=== PATIENT | male | born 1995 | race Caucasian/White ===

== ENCOUNTER 2019-06-04 08:51 | Inpatient (IN) | payer OTHER ==
[2019-06-04] VITALS (34 sets, daily range): BP systolic 70–122; BP diastolic 36–84
[~2019-06-04] VITALS: Ht 177.8 cm; Wt 88.9 kg
--- NOTE | 2019-06-04 09:13 | NUR ---
Patient transferred to bed 2 via wheelchair by tech. RN evaluating patient at bedside.
--- NOTE | 2019-06-04 09:15 | NUR ---
Dr. Armendariz is evaluating the patient at bedside.
[2019-06-04] MEDS ORDERED: NACL 0.9% 1,000 ML IV ONE ×3 (09:25→11:05)
[2019-06-04] MEDS ORDERED: KETOROLAC 30 MG/ML VIAL IVP ONE (09:25)
[2019-06-04] MEDS ORDERED: ONDANSETRON 4 MG/2 ML VIAL IVP ONE ×2 (09:25→11:05)
[2019-06-04] MEDS ORDERED: DEXAMETHASONE 10 MG/ML VIAL IVP ONE (09:30)
[2019-06-04] MEDS ORDERED: VANCOMYCIN 1,000 MG in DEXTROSE 5% 250 ML IV ONE (09:30)
[2019-06-04] MEDS ORDERED: cefTRIAXone 2,000 MG in DEXTROSE 5% 100 ML IV ONE (09:30)
[2019-06-04] MEDS ORDERED: LIDOCAINE MPF 1% 10 MG/ML VIAL INJ ONE (09:50)
[2019-06-04] MEDS ORDERED: LIDOCAINE MPF 1% 5 ML ONE (09:50)
[2019-06-04] MEDS ORDERED: cefTRIAXone 2,000 MG VIAL ONE (09:55)
[2019-06-04] MEDS ORDERED: VANCOMYCIN 1,000 MG VIAL ONE (09:56)
[2019-06-04 10:11] LABS: HEMATOCRIT 50.9 % (36-52); HEMOGLOBIN 16.8 g/dL (12.0-18.0); MEAN CORPUSCULAR HEMOGLOBIN 31 pg (27-31); MEAN CORPUSCULAR HGB CONC 33 g/dL (33-37); MEAN CORPUSCULAR VOLUME 92.6 fL (80-94); PLATELET COUNT (AUTO) 150 K/uL (140-450); RED BLOOD CELL COUNT(AUTO) 5.49 MIL/uL (4.20-6.10); RED CELL DISTRIBUTION WIDTH 13.1 % (11.6-13.7); WHITE BLOOD COUNT (AUTO) 40.7 K/uL (4.8-10.8)
[2019-06-04 10:12] LABS: BASOPHILS # (AUTO) 0.1 K/uL (0.00-0.22); BASOPHILS % (AUTO) 0.1 % (0.0-2.0); LYMPHOCYTES # (AUTO) 0.8 K/uL (2.0-11.5); MONOCYTES # (AUTO) 2.1 K/uL (0.8-1.0); MONOCYTES % (AUTO) 5.2 % (1.7-9.3); NEUTROPHILS # (AUTO) 37.7 K/uL (1.8-7.7); NEUTROPHILS % (AUTO) 92.7 % (42.2-75.2)
[2019-06-04] MEDS ORDERED: NOREPINEPHRINE 4 MG in DEXTROSE 5% 250 ML IV ONE (10:15)
[2019-06-04 10:17] LABS: LYMPHOCYTES % (MANUAL) 2 % (20-46); METAMYELOCYTES % 5 % (0-0); MONOCYTES % (MANUAL) 8 % (5-12); MYELOCYTES % 2 % (0-0)
--- NOTE | 2019-06-04 10:17 | NUR ---
Dr. Armendariz and RN at bedside for lumbar puncture.
[2019-06-04] MEDS: NACL 0.9% 1,000 ML IV SCH ×2 (10:20→10:29)
--- NOTE | 2019-06-04 10:24 | NUR ---
time out per dr rojas
--- NOTE | 2019-06-04 10:30 | NUR ---
lumbar tap done by dr rojas
[2019-06-04 10:44] LABS: ALBUMIN 4.3 g/dL (3.4-5.0); TOTAL BILIRUBIN 4.4 mg/dL (0.0-1.0)
[2019-06-04] MEDS ORDERED: NOREPINEPHRINE 4 MG/4 ML VIAL IV ONE (10:52)
[2019-06-04 11:00] LABS: POTASSIUM 5.5 mmol/L (3.5-5.1)
[2019-06-04] MEDS ORDERED: ONDANSETRON 4 MG/2 ML VIAL ONE (11:03)
[2019-06-04 11:04] LABS: CARBON DIOXIDE 17.4 mmol/L (21-32); CREATININE 7.7 mg/dL (0.7-1.3)
[2019-06-04 11:05] LABS: ANION GAP 33.1 (8-16)
[2019-06-04] MEDS ORDERED: fentaNYL 0.05 MG/ML VIAL IVP ONE (11:05)
[2019-06-04] MEDS ORDERED: PIPERACILLIN/TAZOBACTAM 3.375 GM in DEXTROSE 5% 50 ML IV ONE (11:05)
--- NOTE | 2019-06-04 11:07 | NUR ---
norepinephrine started 4mg into 250 d5% ---b/p 73/27 hr 138 rr 43 spo2 100 % 3L nc
--- NOTE | 2019-06-04 11:16 | NUR ---
up to 8mcg/min norepi b/p 79/33 hr 136
--- NOTE | 2019-06-04 11:22 | NUR ---
DR WARD AT BEDSIDE.
--- NOTE | 2019-06-04 11:26 | NUR ---
LEVO AT 12 MCGS/MIN.
--- NOTE | 2019-06-04 12:06 | NUR ---
LEVO AT 30 MCGS
--- NOTE | 2019-06-04 12:13 | NUR ---
DR WARD AT BEDSIDE.
[2019-06-04] MEDS ORDERED: LACTATED RINGERS 1,000 ML IV ONE (12:15)
[2019-06-04] MEDS ORDERED: NACL 0.9% 1,000 ML IV SCH (12:18)
[2019-06-04] MEDS ORDERED: LORazepam 2 MG/ML VIAL IVP PRN (12:20)
[2019-06-04] MEDS ORDERED: NOREPINEPHRINE 4 MG in DEXTROSE 5% 250 ML IV SCH ×2 (12:20→15:35)
[2019-06-04 12:24] LABS: CSF GLUCOSE 58 mg/dL (40-70); CSF PROTEIN 33.2 mg/dL (15-45)
--- NOTE | 2019-06-04 12:32 | NUR ---
PT ON GURNEY TO CT SCAN.
[2019-06-04] MEDS ORDERED: DOPamine 400 MG/D5W PREMIX 250 ML IV ONE ×2 (12:40→14:01)
[2019-06-04] MEDS ORDERED: VASOPRESSIN 20 UNITS in NACL 0.9% 250 ML IV SCH (12:40)
--- NOTE | 2019-06-04 12:54 | NUR ---
PT BACK FROM CTSCAN
--- NOTE | 2019-06-04 13:39 | NUR ---
Dr. Armendariz and RN at bedside for insertion of central line catheter.
--- NOTE | 2019-06-04 13:40 | NUR ---
DR WARD AT BEDSIDE ABOUT TO PUT CENTRAL LINE.
[2019-06-04] MEDS ORDERED: PIPERACILLIN/TAZOBACTAM 2.25 GM in DEXTROSE 5% 50 ML IV SCH (14:17)
--- NOTE | 2019-06-04 14:20 | NUR ---
KINYARWANDA 16 FC WAS INSERTED.
[2019-06-04] MEDS ORDERED: SODIUM BICARBONATE 8.4% 100 MEQ in NACL 0.45% 1,000 ML IV SCH ×2 (14:35→14:50)
--- NOTE | 2019-06-04 15:00 | NUR ---
Patient will be admitted to care of Dr martines. Admited to icu. Will go to room bed 5. Belongings list completed. Report to marv spear.patient awake ,alert afebrile.
--- NOTE | 2019-06-04 15:10 | NUR ---
ADMITTED PT FROM ER BY PARVEEN. PT AWAKE, ALERT. ABLE TO MAKE NEEDS KNOWN. BEDSIDE MONITOR SHOWS ST 130S. PT DIAPHORETIC. HAS IV TO RIGHT AC AND LEFT IJ TLC RUNNING DOPAMINE AT 14 MCG/KG/MIN. PT IS ON THE 5TH 0.9% NS BOLUS. PER ER NURSE, PT GOT 4L BOLUS IN ER. PT ABD SOFT, BS ACTIVE. PT HAS F/C IN PLACE WITH ORANGE COLOR URINE NOTED. PT ABLE TO MOVE ALL HIS EXTREMITIES BUT C/O TINGLING TO BOTH LOWER EXTREMITIES. DR. SEYMOUR AT BEDSIDE TO CHECK PT, PER ,ONCE WE GET LEVOPHED DRIP, REPLACE DOPAMINE DRIP . PT TEMP 97.4F. HOB ELEVATED 30 DEGREES WITH LOW BED POSITION. WILL CONTINUE TO MONITOR.
[2019-06-04 15:16] LABS: ANION GAP 22.6 (8-16); CARBON DIOXIDE 12.1 mmol/L (21-32); POTASSIUM 3.7 mmol/L (3.5-5.1)
[2019-06-04 15:24] LABS: CREATININE 4.5 mg/dL (0.7-1.3)
[2019-06-04 15:26] LABS: APPEARANCE,URINE SL CLOUDY (CLEAR); BILIRUBIN,URINE 1+ (NEGATIVE); BLOOD, URINE 2+ (NEGATIVE); COLOR,URINE ORANGE (YELLOW); LEUKOCYTE ESTERASE ,URINE NEGATIVE (NEGATIVE); NITRITE, URINE POSITIVE (NEGATIVE); UGLUCOSE NEGATIVE (NEGATIVE)
[2019-06-04 16:07] LABS: RBC,URINE 0-5 /HPF (0-5); WBC,URINE 0-5 /HPF (0-5)
[2019-06-04] MEDS: SODIUM BICARBONATE 8.4% 150 MEQ in DEXTROSE 5% 1,000 ML IV SCH (16:23)
--- NOTE | 2019-06-04 16:28 | NUR ---
CALLED DR. SEYMOUR FOR CRITICAL REPORT CA 5.9, ORDER RECEIVED.
[2019-06-04] MEDS: ACETAMINOPHEN 325 MG TAB PO PRN (17:30)
[2019-06-04] MEDS: ASCORBIC ACID INJ 1,500 MG in NACL 0.9% 100 ML IV SCH (17:34)
[2019-06-04] MEDS: HYDROCORTISONE NA SUCC 100 MG/2 ML VIAL IV SCH (17:38)
--- NOTE | 2019-06-04 18:00 | NUR ---
PT STATED HEADACHE RELIEVED AFTER TYLENOL. FAMILY AT BEDSIDE.
--- NOTE | 2019-06-04 19:30 | NUR ---
RECEIVED REPORT FROM AM NURSE, PT AT BED AWAKE, ALERT AND ORIENTED X4, PT CALM, COOPERATIVE, PERRL 3MM, BRISK, LUNG SOUNDS CLEAR THROUGHOUT, PT AT NC 2L/MIN, LUNG SOUNDS CLEAR THROUGHOUT, HEART RATE REGULAR S1S2 PRESENT, CAP REFILL <3S, PULSES 2+ BILATERAL UPPER AND LOWER EXTREMITIES, ABDOMEN , SOFT, ROUND, NONDISTENDED, NONTENDER, BLADDER, SOFT, ROUND, NONDISTENDED, NONTENDER, ROBLES CATHETER IN PLACE, DRAINING CLEAR, YELLOW, URINE, PT SKIN INTACT, WARM, DRY, PT HAS LEFT IJ CENTRAL LINE TRIPLE LUMEN, RUNNING SODIUM BICARB 8.4% 150 MEQ IN D5 1000 ML AT 125 ML/HR, NS AT 10 ML/HR, PT HAS GENERALIZED WEAKNESS, HOB 30 DEGREES, SIDE RAILS UP X2, BED AT LOWEST POSITION.
[2019-06-04] MEDS: NOREPINEPHRINE 8 MG in DEXTROSE 5% 250 ML IV PRN (19:32)
[2019-06-04] MEDS ORDERED: CALCIUM GLUCONATE 10% 1,000 MG in NACL 0.9% 100 ML IV SCH (20:00)
[2019-06-04] MEDS: THIAMINE 200 MG in NACL 0.9% 50 ML IV SCH (20:07)
[2019-06-04] MEDS: PIPERACILLIN/TAZOBACTAM 2.25 GM in DEXTROSE 5% 50 ML IV SCH (20:07)
--- NOTE | 2019-06-04 21:00 | NUR ---
ADMINISTERED MEDICATIONS. PT AT BED BREATHING REGULARLY ON NC. PT FAMILY AT BEDSIDE. WILL CONTINUE TO MONITOR.
[2019-06-04] MEDS ORDERED: CALCIUM GLUCONATE 10% 1000 MG/10 ML VIAL ONE (21:20)
--- NOTE | 2019-06-04 23:15 | NUR ---
PT AT BED AWAKE. FAMILY AT BEDSIDE. BREATHING REGULARLY AT NC 3L/MIN.
[2019-06-05] VITALS (73 sets, daily range): BP systolic 100–133; BP diastolic 54–95
[2019-06-05] MEDS: ACETAMINOPHEN 325 MG TAB PO PRN ×2 (00:19→07:52)
[2019-06-05] MEDS: ASCORBIC ACID INJ 1,500 MG in NACL 0.9% 100 ML IV SCH ×5 (00:25→23:56)
[2019-06-05] MEDS: SODIUM BICARBONATE 8.4% 150 MEQ in DEXTROSE 5% 1,000 ML IV SCH ×3 (00:25→20:14)
[2019-06-05] MEDS: HYDROCORTISONE NA SUCC 100 MG/2 ML VIAL IV SCH ×5 (00:25→23:56)
--- NOTE | 2019-06-05 01:10 | NUR ---
PT AT BED, EYES CLOSED, BREATHING REGULARLY ON NC 3L/MIN. WILL CONTINUE TO MONITOR.
[2019-06-05] MEDS: MORPHINE SULFATE 2 MG/ML SYR IVP PRN ×3 (01:44→22:02)
[2019-06-05] MEDS ORDERED: NOREPINEPHRINE 4 MG/4 ML VIAL IV ONE (02:41)
--- NOTE | 2019-06-05 02:49 | NUR ---
PT AT BED, EYES CLOSED, BREATHING REGULARLY ON NC 3L/MIN. WILL CONTINUE TO MONITOR.
[2019-06-05] MEDS: NOREPINEPHRINE 8 MG in DEXTROSE 5% 250 ML IV PRN ×2 (03:36→10:13)
[2019-06-05] MEDS: PIPERACILLIN/TAZOBACTAM 2.25 GM in DEXTROSE 5% 50 ML IV SCH ×3 (05:07→20:15)
--- NOTE | 2019-06-05 05:10 | NUR ---
PT AT BED, EYES CLOSED, BREATHING REGULARLY ON NC 3L/MIN. WILL CONTINUE TO MONITOR. REPOSITIONED PT. AM CARE PROVIDED
[2019-06-05 06:31] LABS: HEMATOCRIT 35.3 % (36-52); HEMOGLOBIN 11.9 g/dL (12.0-18.0); MEAN CORPUSCULAR HEMOGLOBIN 31 pg (27-31); MEAN CORPUSCULAR HGB CONC 34 g/dL (33-37); MEAN CORPUSCULAR VOLUME 91.5 fL (80-94); PLATELET COUNT (AUTO) 102 K/uL (140-450); RED BLOOD CELL COUNT(AUTO) 3.86 MIL/uL (4.20-6.10); RED CELL DISTRIBUTION WIDTH 12.9 % (11.6-13.7)
[2019-06-05 06:45] LABS: ALBUMIN 2.7 g/dL (3.4-5.0); ANION GAP 22.3 (8-16); CARBON DIOXIDE 22.7 mmol/L (21-32); TOTAL BILIRUBIN 4.2 mg/dL (0.0-1.0)
[2019-06-05 06:54] LABS: WHITE BLOOD COUNT (AUTO) 43.1 K/uL (4.8-10.8)
[2019-06-05 07:04] LABS: CREATININE 4.9 mg/dL (0.7-1.3)
--- NOTE | 2019-06-05 07:10 | NUR ---
BEDSIDE REPORT RECEIVED FROM TANK BUILDER HELPER NURSE, PT RESTING WITH EYES CLOSED, AROUSES EASILY TO VOICE, OX4, RESP EVEN UNLABORED ON RA, SKIN WARM DRY COLOR WNL, PT REPORTS ONLY MINIMAL GENERALIZED BODY PAIN, JUST RECEIVED MORPHINE, DENIES NEED FOR MEDICATION, DENIES N/V, PT ON MONITOR VITALS STABLE, HR 90, BP 120/85, RR 17, O2 SAT 98% RA, L IJ CENTRAL LINE SITE WNL, INFUSING BICARB AT 125ML/HR, LEVOPHED AT 18MCG/MIN, PLAN OF CARE REVIEWED, ALL SAFETY MEASURES IN PLACE, WILL CONTINUE TO MONITOR.
--- NOTE | 2019-06-05 07:26 | NUR ---
CHANGE OF SHIT REPORT GIVEN TO AM NURSE
[2019-06-05 07:52] LABS: BASOPHILS % (MANUAL) 0 % (0-2); EOSINOPHILS % (MANUAL) 0 % (0-4); LYMPHOCYTES % (MANUAL) 2 % (20-46); METAMYELOCYTES % 2 % (0-0)
--- NOTE | 2019-06-05 07:52 | NUR ---
PT C/O LUCIA 12/12, PT REQUESTS TYLENOL, 650MG PO TYLENOL GIVEN PER ORDER, PT JUANJOSE PILLS WELL. BREAKFAST TRAY AT BEDSIDE, PT STATES HE DOES NOT FEEL LIKE EATING AT THIS TIME. FATHER AT BEDSIDE, WILL CONTINUE TO MONITOR.
[2019-06-05 07:53] LABS: MONOCYTES % (MANUAL) 5 % (5-12); MYELOCYTES % 2 % (0-0)
[2019-06-05] MEDS: ONDANSETRON 4 MG/2 ML VIAL IVP PRN ×2 (08:16→17:42)
[2019-06-05] MEDS: THIAMINE 200 MG in NACL 0.9% 50 ML IV SCH ×2 (08:21→20:14)
--- NOTE | 2019-06-05 08:33 | NUR ---
PT HAS BEEN SCREENED AND CATEGORIZED HIGH NUTRITION RISK. PT WILL BE SEEN WITHIN 1-2 DAYS OF ADMISSION. 06/05/19-06/06/[address]
[2019-06-05] MEDS: MORPHINE SULFATE 4 MG/ML SYR IVP PRN (08:44)
--- NOTE | 2019-06-05 10:04 | NUR ---
REED FROM [facility]RE[facility] VELOZ, ([phone]) CALLED FOR PT CONDITION UPDATE. DR NICHOLS'S OFFICE NUMBER PROVIDED.
[2019-06-05] MEDS ORDERED: CALCIUM GLUCONATE 10% 1,000 MG in NACL 0.9% 50 ML IV SCH (10:30)
--- NOTE | 2019-06-05 11:05 | NUR ---
PT RESTING QUIETLY IN BED, USING HIS PHONE, FATHER AT BEDSIDE, PT DENIES ANY PAIN OR DISCOMFORT AT THIS TIME, DENIES ANY IMMEDIATE NEEDS, VS STABLE ON MONITOR, WILL CONTINUE TO MONITOR.
--- NOTE | 2019-06-05 11:25 | NUR ---
DR NICHOLS AT BEDSIDE, POC DISCUSSED WITH PT AND HIS FATHER.
[2019-06-05] MEDS: FAMOTIDINE 20 MG/2 ML VIAL IV SCH (12:17)
--- NOTE | 2019-06-05 13:02 | NUR ---
PT SITTING UP IN BED, USING CELLPHONE, IN NO ACUTE DISTRESS, DENIES PAIN OR DISCOMFORT, GRANDMOTHER AT BEDSIDE.
[2019-06-05] MEDS: CALCIUM GLUCONATE 10% 1,000 MG in NACL 0.9% 50 ML IV SCH ×2 (13:48→20:14)
--- NOTE | 2019-06-05 13:55 | NUR ---
PT SITTING UP MAKING CONVERSATION WITH VISITORS AND FATHER, PT APPEARS IN NO ACUTE DISTRESS.
--- NOTE | 2019-06-05 14:49 | NUR ---
06/05/19 RD INITIAL ASSESSMENT COMPLETED PLEASE REFER TO NUTRITION ASSESSMENT UNDER CARE ACTIVITY FOR ESTIMATED NUTRITIONAL NEEDS. 1. CONTINUE FULL LIQUID DIET APPROPRIATE 2. ADVANCE TO RENAL DIET WHEN PT IS READY TO RECEIVE SOLID FOOD 3. RD TO FOLLOW-UP 2-3 DAYS, HIGH RISK LELIA LOPEZ, RD
[2019-06-05] MEDS ORDERED: ACETAMINOPHEN 325 MG TAB PO PRN (15:00)
--- NOTE | 2019-06-05 15:10 | NUR ---
BEDBATH GIVEN, ROBLES CARE DONE, LEFT IJ CENTRAL LINE DRESSING CHANGED, WATER JUG REFILLED WITH ICE WATER, DENIES ANY PAIN, BP REMAINS WNL OFF LEVOPHED. SAFETY MEASURES IN PLACE, WILL CONTINUE TO MONITOR.
--- NOTE | 2019-06-05 15:25 | NUR ---
SLIGHT DIAPHORESIS NOTED ON FOREHEAD DURING CARE, PT STATES HE GETS ANXIOUS WHEN DOING UNFAMILIAR THINGS AND GETS SWEATY OFTEN, VITALS STABLE ON THE MONITOR, SKIN COLOR WNL, PT DENIES NEED FOR ANY ANXIETY MEDICATIONS, WILL CONTINUE TO MONITOR.
--- NOTE | 2019-06-05 16:28 | NUR ---
PT RESTING WITH EYES CLOSED, VITALS STABLE ON MONITOR, BP 109/67 WITHOUT LEVOPHED, AFEBRILE, PT'S MOTHER AND SISTER AT BEDSIDE.
--- NOTE | 2019-06-05 17:35 | NUR ---
PT SITTING UP EATING FULL LIQ DINNER WITH SISTER'S ASSIST, DENIES NAUSEA AT THIS TIME.
--- NOTE | 2019-06-05 17:47 | NUR ---
PT C/O FEELING NAUSEA AFTER TRYING SMALL AMT OF FULL LIQ, ZOFRAN GIVEN AT THIS TIME, PT WILL ATTEMPT PO AT LATER TIME.
--- NOTE | 2019-06-05 19:08 | NUR ---
BEDSIDE REPORT GIVEN TO RUG SIZER NURSE, PT RESTING IN BED IN NO ACUTE DISTRESS.
--- NOTE | 2019-06-05 19:20 | NUR ---
RECEIVED REPORT FROM AM NURSE. PT AT BED AWAKE, LETHARGIC, CALM, COOPERATIVE, PERRLA 3MM, BRISK, PT BREATHING REGULARLY ON ROOM AIR, UNLABORED, LUNG SOUNDS CLEAR THROUGHOUT, HEART RATE REGULAR, SR ON MONITOR, S1S2 PRESENT, CAP REFILL <3S, PULSES 2+ BILATERAL UPPER AND LOWER EXTREMITIES, ABDOMEN, SOFT, ROUND, NONDISTENDED, NONTENDER, BLADDER, SOFT, ROUND, NONDISTENDED, NONTENDER, ROBLES CATHETER IN PLACE, DRAINING CLEAR, YELLOW, URINE, PT HAS GENERALIZED WEAKNESS, SKIN DRY, INTACT, WARM, PT HAS LEFT IJ CENTRAL LINE, TRIPLE LUMEN, RUNNING SODIUM BICARB 8.4% 150 MEQ IN D5 1000 ML, RUNNING AT 125 ML/HR, SKIN INTACT, WARM, DRY, HOB 30 DEGREES, SIDE RAILS UP X2, BED AT LOWEST POSITION.
[2019-06-05] MEDS ORDERED: PIPERACILLIN/TAZOBACTAM 2.25 GM VIAL IV ONE (20:01)
--- NOTE | 2019-06-05 21:15 | NUR ---
MEDICATIONS GIVEN. PT TOLERATED WELL.
--- NOTE | 2019-06-05 23:20 | NUR ---
PT FAMILY AT BEDSIDE. PT AWAKE, BREATHING REGULARLY AT ROOM AIR. WILL CONTINUE TO MONITOR.
[2019-06-06] VITALS (13 sets, daily range): BP systolic 94–107; BP diastolic 50–69
--- NOTE | 2019-06-06 00:45 | NUR ---
DR. ESPARZA AT BEDSIDE. UPDATED MD WITH PT CONDITION. RECEIVED NEW ORDERS. WILL CONTINUE TO MONITOR.
--- NOTE | 2019-06-06 02:34 | NUR ---
PT AT BED EYES CLOSED BREATHING REGULARLY ON ROOM AIR. WILL CONTINUE TO MONITOR.
--- NOTE | 2019-06-06 04:15 | NUR ---
PT FATHER AT BEDSIDE. PT AT BED BREATHING REGULARLY, AWAKE. WILL CONTINUE TO MONITOR.
[2019-06-06] MEDS: CALCIUM GLUCONATE 10% 1,000 MG in NACL 0.9% 50 ML IV SCH ×2 (04:22→13:00)
[2019-06-06] MEDS: PIPERACILLIN/TAZOBACTAM 2.25 GM in DEXTROSE 5% 50 ML IV SCH ×4 (04:22→23:48)
[2019-06-06] MEDS: MORPHINE SULFATE 2 MG/ML SYR IVP PRN (04:37)
[2019-06-06] MEDS: HYDROCORTISONE NA SUCC 100 MG/2 ML VIAL IV SCH ×2 (06:04→20:31)
[2019-06-06] MEDS: ASCORBIC ACID INJ 1,500 MG in NACL 0.9% 100 ML IV SCH ×4 (06:04→23:48)
[2019-06-06 06:28] LABS: HEMATOCRIT 31.1 % (36-52); HEMOGLOBIN 10.7 g/dL (12.0-18.0); MEAN CORPUSCULAR HEMOGLOBIN 31 pg (27-31); MEAN CORPUSCULAR HGB CONC 35 g/dL (33-37); MEAN CORPUSCULAR VOLUME 90.9 fL (80-94); PLATELET COUNT (AUTO) 57 K/uL (140-450); RED BLOOD CELL COUNT(AUTO) 3.42 MIL/uL (4.20-6.10)
[2019-06-06 06:41] LABS: ALBUMIN 2.4 g/dL (3.4-5.0); ANION GAP 13.5 (8-16); CARBON DIOXIDE 32.7 mmol/L (21-32); CREATININE 2.7 mg/dL (0.7-1.3); POTASSIUM 3.2 mmol/L (3.5-5.1); TOTAL BILIRUBIN 3.8 mg/dL (0.0-1.0)
[2019-06-06 07:02] LABS: LYMPHOCYTES % (MANUAL) 9 % (20-46); MONOCYTES % (MANUAL) 9 % (5-12)
--- NOTE | 2019-06-06 07:20 | NUR ---
BEDSIDE REPORT RECIEVED FROM RETAIL ADVERTISING EXECUTIVE NURSE, PT AWAKE ALERT OX4, RESP EVEN UNLABORED ON RA, SKIN WARM DRY COLOR WNL, PT ON MONITOR SR, VITAL STABLE, PT DENIES PAIN OR DISCOMFORT AT THIS TIME, L IJ CENTRAL LINE SITE WNL, ROBLES CATH DRAINGING YELLOW URINE, POC REVIEWED, NO IMMEDIATE NEEDS AT THIS TIME, WILL CONTINUE TO MONTIOR.
[2019-06-06] MEDS: SODIUM BICARBONATE 8.4% 150 MEQ in DEXTROSE 5% 1,000 ML IV SCH (07:44)
--- NOTE | 2019-06-06 07:45 | NUR ---
DR NICHOLS CALLED BACK, CRITICAL TROPONIN 5.349, K 3.2 REPORTED, HEPARIN DRIP, K SUSHMA, CARDIO CONSULT ORDER RECEIVED.
[2019-06-06 08:20] LABS: PROTHROMBIN TIME 10.5 secs (10.8-13.4)
--- NOTE | 2019-06-06 08:34 | NUR ---
DR MAGDALENA JIMÉNEZ, PLATELETS 57, PHARMACY QUESTIONING IF HEPARIN DRIP IS APPROPRIATE.
--- NOTE | 2019-06-06 08:39 | NUR ---
DC PLANNIN24 Y/O MALE FROM HOME, WHO CAME IN DUE TO NIGHT SWEATS, TACTILE FEVER, GENERALIZED BODY ACHES FOR 2 DAYS. NO PERTINENT MEDICAL HISTORY. INITIAL DIAGNOSIS OF SEPTIC SHOCK. CURRENT LABS INCLUDE WBC 28.0, H/H 10.7/31.1, NA/K 140/3.2, BUN/CREA/ 52/2.7 AND TROP 5.349. ON ZOSYN AND SOLU CORTEF IV. CARDIO CONSULT WITH DR. Paulie ABDI FOR INCREASED TROP. NEPHRO CONSULT WITH DR. RAINEY FOR JANESSA. DC PLANNING PENDING ON PATIENT'S RESPONSE TO TREATMENT. Addendum: 06/07/19 at 1055 by Martine Jacobs STILL IN ICU. AOX4, ABLE TO MAKE HIS NEEDS KNOWN. LIJ CENTRAL LINE IN PLACE. FC IN PLACE. STILL ON SOLUMEDROL AND ZOSYN. CARDIO AND NEPHRO CONSULT IN PLACE. PATIENT HAS AN ORDER TO DOWNGRADE TO TELEMETRY. CURRENT LABS INCLUDE WBC 21.9, H/H 10.9/32.6, PLT 59, NA/K 142/3.1, BUN/CREA 34/1.4 AND TROPONIN IS TRENDING DOWN TODAY 1.445. PER CARDIO NO NEED FOR HEPARIN DRIP DUE TO PLATELETS ARE LOW. DC PLAN STILL PENDING ON PATIENT'S RESPONSE TO TREATMENT. Addendum: 06/07/19 at 1614 by Martine Jacobs CM RECEIVED A CALL FROM [facility], SHE IS INQUIRING IF THE PATIENT IS STABLE TO BE TRANSFERRED TO A CONTRACTED FACILITY. DR. NICHOLS MADE AWARE, OK TO TRANSFER TO A CONTRACTED FACILITY. WILL FAX ORDER TO [facility] AT [phone]. Addendum: 06/07/19 at 1631 by Martine Jacobs CM CONTACTED REED [facility] OF [facility] AT [phone], MADE HER AWARE THAT PER DR. NICHOLS, PATIENT IS STABLE TO BE TRANSFERRED TO CONTRACTED FACILITY. ORDER AND CLINICALS FAXED TO THE PROVIDED NUMBER. PER [facility] THEY WILL ARRANGE TRANSFER AND TRANSPORTATION. CHARGE NURSE DOUG MADE AWARE. Addendum: 06/08/19 at 1414 by Laurie Mayberry CM NE PLANNING: STILL WAITING TO TRANSFER TO A CONTRACTED FACILITY CALLED [facility] REED [facility] [phone] LEFT A MESSAGE AND FAXED THE POST-STABILIZATION FORM TO [phone]
[2019-06-06] MEDS ORDERED: HEPARIN PER PHARMACY MC SCH (09:00)
[2019-06-06] MEDS: THIAMINE 200 MG in NACL 0.9% 50 ML IV SCH ×2 (09:50→20:31)
[2019-06-06] MEDS: KCL 20 MEQ/WATER INJ PREMIX 200 ML IV SCH ×2 (09:55→12:02)
--- NOTE | 2019-06-06 09:58 | NUR ---
HEPARIN SQ HELD FOR PLATELETS 57, DR NICHOLS AWARE
[2019-06-06] MEDS ORDERED: PROBIOTIC SCREEN 1 EA MISC MC PRN (11:00)
--- NOTE | 2019-06-06 11:49 | NUR ---
DR ELLIS AT [facility]
[2019-06-06] MEDS: ACETAMINOPHEN 325 MG TAB PO PRN ×2 (11:57→23:16)
[2019-06-06] MEDS: NACL 0.9% 1,000 ML IV SCH (11:57)
--- NOTE | 2019-06-06 12:10 | NUR ---
DR Ashlee ABDI AT BEDSIDE, NO NEED FOR HEPARIN DRIP, ELEVATED TROPONIN LIKELY FROM INFECTION PER Paulie MIRANDA.
--- NOTE | 2019-06-06 14:23 | NUR ---
ECHOCARDIOGRAM AT BEDSIDE
--- NOTE | 2019-06-06 14:46 | NUR ---
Treating Engineer Note: JAYE attempted to complete screening. JAYE contacted patient's emergency contact Reyna Tranz [phone] but Reyna was not available. SW left voicemail. SW will follow up as needed.
--- NOTE | 2019-06-06 15:20 | NUR ---
BED BATH GIVEN, PERICARE DONE, ROBLES CARE DONE, LINEN CHANGED,
[2019-06-06] MEDS: MORPHINE SULFATE 4 MG/ML SYR IVP PRN (15:45)
--- NOTE | 2019-06-06 19:25 | NUR ---
RECEIVED REPORT FROM DAYSHIFT NURSE AT PATIENTS BEDSIDE. PATIENT AWAKE AND ALERT, ABLE TO MAKE NEEDS KNOWN AND FOLLOW ALL COMMANDS. SKIN WARM AND DRY, AFEBRILE. ON ROOM AIR WITH SATURATIONS AT 95%. LUNG SOUNDS CLEAR POSTERIORLY. ANTERIOR LUNG SOUNDS ARE DIMINISHED. BREATHING IS UNLABORED, DENIES CHEST PAIN AT THIS TIME. INSIDE FINISHER CONNECTED, S1S2 HEARD, SR ON MONITOR. ALL OTHER VITALS WITHIN NORMAL LIMITS. LEFT IJ TRIPLE LUMEN IN PLACE, INFUSING NS @ 75ML/HR. ALL LUMENS PATENT. LEFT AND RIGHT AC PERIPHERAL IV'S, 20G, IN PLACE. FLUSHED AND PATENT, NO SYMPTOMS. ABDOMEN IS LARGE AND NONTENDER, ACTIVE BOWEL SOUNDS. PATIENT ABLE TO MOVE BUE AND BLE BUT MILD WEAKNESS NOTED. ROBLES CATHETER IN PLACE WITH CLEAR ANABELLA/ORANGE URINE NOTED. BED IS LOCKED AND IN LOW POSITION, SIDERAILS UP x3, CALL LIGHT AND VALUABLES WITHIN REACH, AND PATIENT IS UPDATED ON CARE PLAN. WILL CONTINUE TO MONITOR.
--- NOTE | 2019-06-06 21:10 | NUR ---
SCHEDULED MEDICATIONS PROVIDED, RN AT BEDSIDE TO EXPLAIN INDICATIONS AND SIDE EFFECTS. PATIENT VERBALIZES UNDERSTANDING. PATIENT SITTING UP IN BED PERFORMING INCENTIVE SPIROMETER EXERCISES. ALL NEEDS MET AT THIS TIME.
--- NOTE | 2019-06-06 22:36 | NUR ---
PATIENT AWAKE, REQUESTING ASSISTANCE WITH POSITIONING, SITTING UP EATING, REQUESTING WATER, CARRIED OUT. PATIENT DENIES PAIN, NAUSEA, VOMITING. CALL LIGHT WITHIN REACH.
--- NOTE | 2019-06-06 23:00 | NUR ---
PATIENTS FATHER AT BEDSIDE TO VISIT. UPDATED ON PATIENTS CONDITION AND ANSWERED ALL QUESTIONS.
[2019-06-07] VITALS (10 sets, daily range): BP systolic 95–113; BP diastolic 54–81
--- NOTE | 2019-06-07 00:15 | NUR ---
COMPLAINTS OF HEADACHE, REQUESTING TYLENOL. CARRIED OUT, PATIENT SITTING UP DRINKING WATER, CALL LIGHT WITHIN REACH. WILL CONTINUE TO MONITOR.
[2019-06-07] MEDS: MORPHINE SULFATE 4 MG/ML SYR IVP PRN ×3 (02:15→17:57)
--- NOTE | 2019-06-07 02:30 | NUR ---
REMOVED RIGHT AC 20G PERIPHERAL IV. PATIENT COMPLAINING OF PAIN AND DISCOMFORT AT SITE. LINE FLUSHED AND PATENT. REMOVED CATHETER, INTACT, PT TOLERATED WELL. LEFT AC 20G STILL IN PLACE AND LEFT IJ.
--- NOTE | 2019-06-07 04:15 | NUR ---
OFFERED ASSISTANCE WITH SPONGE BATH AND ORAL CARE. PATIENT REFUSING AT THIS TIME, REQUESTING TO DO AT LATER TIME AFTER HE WAKES UP. WILL FOLLOW UP. PATIENT ORIENTED TO ROBLES CATHETER CARE, VERBALIZES UNDERSTANDING. SIDERAILS UPx3, SAFETY ALARMS IN PLACE. ALL CLEANING SUPPLIES AVAILABLE AT PATIENTS BEDSIDE
[2019-06-07] MEDS: PIPERACILLIN/TAZOBACTAM 2.25 GM in DEXTROSE 5% 50 ML IV SCH ×4 (05:22→23:20)
[2019-06-07] MEDS: NACL 0.9% 1,000 ML IV SCH ×2 (05:22→14:25)
[2019-06-07] MEDS: ASCORBIC ACID INJ 1,500 MG in NACL 0.9% 100 ML IV SCH (05:23)
[2019-06-07 05:30] LABS: HEMATOCRIT 32.6 % (36-52); HEMOGLOBIN 10.9 g/dL (12.0-18.0); MEAN CORPUSCULAR HEMOGLOBIN 31 pg (27-31); MEAN CORPUSCULAR HGB CONC 33 g/dL (33-37); MEAN CORPUSCULAR VOLUME 92.7 fL (80-94); PLATELET COUNT (AUTO) 59 K/uL (140-450); RED BLOOD CELL COUNT(AUTO) 3.52 MIL/uL (4.20-6.10); RED CELL DISTRIBUTION WIDTH 13.3 % (11.6-13.7); WHITE BLOOD COUNT (AUTO) 21.9 K/uL (4.8-10.8)
--- NOTE | 2019-06-07 06:10 | NUR ---
PATIENT RESTING WELL IN BED, EYES CLOSED, ON ROOM AIR. SATURATIONS ABOVE 95%, LEFT IJ IN PLACE, DRESSING DRY AND INTACT, REINFORCED, INFUSING NS AT 75ML/HR. FLACC 0. CALL LIGHT WITHIN REACH
[2019-06-07 06:14] LABS: ALBUMIN 2.5 g/dL (3.4-5.0); ANION GAP 10.4 (8-16); CARBON DIOXIDE 32.7 mmol/L (21-32); CREATININE 1.4 mg/dL (0.7-1.3); POTASSIUM 3.1 mmol/L (3.5-5.1); TOTAL BILIRUBIN 1.9 mg/dL (0.0-1.0)
[2019-06-07 06:16] LABS: LYMPHOCYTES % (MANUAL) 4 % (20-46); MONOCYTES % (MANUAL) 3 % (5-12)
[2019-06-07 06:18] LABS: MAGNESIUM 1.9 mg/dL (1.8-2.4); PHOSPHORUS 3.6 mg/dL (2.5-4.9)
--- NOTE | 2019-06-07 07:20 | NUR ---
RECEIVED BEDSIDE REPORT FROM JERROD CYCLE REPAIRER RN, FOR CONTINUITY OF CARE. PATIENT IS AAOX4, FOLLOWS COMMANDS, MAKE NEEDS KNOWN. PATIENT SKIN IS WARM, DRY, INTACT. HE HAS CENTRAL LINE TO LI, ASYMPTOMATIC AND PATENT. PATIENT IS ON ROOM AIR, DENIES ANY PAIN, SR ON MONITOR. PATIENT HAS ROBLES CATHETER IN PLACE. HOB IS SEMI RICH, CALL LIGHT WITHIN REACH. NO SIGNS OF DISTRESS NOTED. WILL CONTINUE TO MONITOR
--- NOTE | 2019-06-07 08:12 | NUR ---
PATIENT'S FATHER IS AT BEDSIDE, UPDATED ON PATIENT'S CONDITION.
[2019-06-07] MEDS: HYDROCORTISONE NA SUCC 100 MG/2 ML VIAL IV SCH (09:01)
[2019-06-07] MEDS: THIAMINE 200 MG in NACL 0.9% 50 ML IV SCH (09:01)
[2019-06-07] MEDS: LACTOBACILLUS RHAMNOSUS GG 1 EACH CAP PO SCH (09:02)
--- NOTE | 2019-06-07 10:13 | NUR ---
DR. NICHOLS IS HERE TO SEE PATIENT, UPDATED ON PATIENT'S CONDITION, STATES PATIENT MAY BE TRANSFERRED TO TELE, WILL FOLLOW UP ON ANY ORDERS.
[2019-06-07] MEDS ORDERED: POTASSIUM CHLORIDE 10 MEQ TABER PO SCH ×2 (10:30→15:00)
--- NOTE | 2019-06-07 10:50 | NUR ---
RECEIVED ORDER FOR TRANSFER TO TELE, PENCILLER AND STAFF COORDINATOR ARE AWARE. WAITING FOR BED IN TELE
--- NOTE | 2019-06-07 11:46 | NUR ---
Pharmaceutical Development Technician Note: Basic Screen: Yes High Risk DC Screen [place]: AYANA GREENE Home Relationship: FATHER Pre-Admission Living Arrangements: Lives with Other Prior ADL Independent Current Home Health Name/Tel: N/A Current DME/02 Name/Tel: N/A Current Hospice Name/Tel: N/A Current Dialysis Name/Tel: N/A Healthcare Decision Maker: Patient Advance Directive No - REFUSED Physician Orders for Life Sustaining Treatment Form No Patient/Family Have Educational Needs No Information Taught: Advance Directive Person Taught: Patient Teaching Tools: Verbal Factors Affecting Learning: None Participation Level: Refused Evaluation: Verbalizes Understanding Needs Additional Education: No Discipline: Case Mgt/Social Svcs Tentative Discharge Plan/Destination: No Needs Identified Will require assistance post discharge: No Referred to Pacu Nurse: No Tentative Discharge Plan Summary: Patient is a 24-year-old male admitted for septic shock. Patient has no significant PMHX. Patient was admitted from home. SW met with patient at bedside to verify demographics. Patient reports no mental health history and no substance abuse history. SW provided education on advanced directive but patient refused. Patient requested to change emergency contact information from Reyna Greene to father Ayana Greene [phone]. Patient's tentative discharge plan is to return home. No further needs identified. Signature: NADER Piper Date: Jun 07, 2019 Time: 11:46
--- NOTE | 2019-06-07 11:59 | NUR ---
DR. ELLIS IS HERE TO SEE PATIENT, UPDATED ON PATIENT'S CONDITION. STATES OK TO D/C ROBLES CATHETER. WILL FOLLOW UP ON ANY ORDERS.
--- NOTE | 2019-06-07 12:00 | NUR ---
PER DR. ELLIS, PATIENT NEEDS CALCIUM GLUCONATE 1 AMP AND ANOTHER 40 MEQ OF POTASSIUM, GIVE 4 HRS AFTER LAST DOSE GIVEN.
[2019-06-07] MEDS: FAMOTIDINE 20 MG/2 ML VIAL IV SCH (12:38)
[2019-06-07] MEDS ORDERED: CALCIUM GLUCONATE 10% 1,000 MG in NACL 0.9% 50 ML IV SCH (13:30)
--- NOTE | 2019-06-07 14:08 | NUR ---
06/07/19 RD FOLLOW UP COMPLETED PLEASE REFER TO NUTRITION ASSESSMENT UNDER CARE ACTIVITY FOR ESTIMATED NUTRITIONAL NEEDS. 1. CONTINUE REGULAR DIET APPROPRIATE 2. ENCOURAGE INCREASING PO INTAKE 3. RD PROVIDED NUTRITION EDUCATION FOR GENERAL HEALTHY EATING 4. RD TO FOLLOW-UP 3-5 DAYS, MODERATE RISK ALVINO KOLB, RD
--- NOTE | 2019-06-07 14:09 | NUR ---
DR. ABDI IS HERE TO SEE AND EXAMINE PATIENT, UPDATED ON PATIENT'S CONDITION.
[2019-06-07] MEDS: MORPHINE SULFATE 2 MG/ML SYR IVP PRN (17:00)
--- NOTE | 2019-06-07 17:04 | NUR ---
PATIENT COMPLAINING OF ABD PAIN, EDUCATED ON PAIN MANAGEMENT, PATIENT AGREES TO TRY 2MG MORPHINE IVP PRN.
--- NOTE | 2019-06-07 17:50 | NUR ---
PATIENT STATES THAT THE MORPHINE 2MG DID NOT RELIEVE PAIN, GAVE 4MG MORPHINE IVP PRN. PATIENT TOLERATED WELL, VS STABLE. WILL CONTINUE TO MONITOR PATIENT
--- NOTE | 2019-06-07 18:33 | NUR ---
PATIENT COMPLAINING OF IRRITATION TO HIS LIPS, BUMPS AND SWELLING NOTED TO PATIENT'S LIPS. PAGED DR. FOUNTAIN WHO IS SHADOWGRAPH OPERATOR FOR DR. NICHOLS.
--- NOTE | 2019-06-07 18:44 | NUR ---
DR. FOUNTAIN CALLED, AWARE OF PATIENT'S CONDITION. RECEIVED ORDER FOR BENADRYL 25MG IVP Q6H, METHYPREDNISOLONE 125MG IVP ONCE, PEPCID 20 MG IVP ONCE.
[2019-06-07] MEDS ORDERED: diphenhydrAMINE 50 MG/ML VIAL IVP PRN (18:45)
[2019-06-07] MEDS ORDERED: FAMOTIDINE 20 MG/2 ML VIAL IV SCH (19:00)
[2019-06-07] MEDS ORDERED: methylPREDNISolone SS 125 MG/2 ML VIAL IVP SCH (19:00)
--- NOTE | 2019-06-07 19:30 | NUR ---
RECEIVED PT REPORT FROM [facility]. PT RESTING IN BED AT THIS TIME. A/O X 4. OPENS EYES SPONTANEOUSLY AND RESPONDS APPROPRIATELY. DENIES PAIN UPON QUESTIONING. STATES THAT THE MORPHINE GIVEN ON PRIOR SHIFT RELIEVED PAIN. PERRL. SOME FLUID-FILLED VESICLES C REDNESS NOTED TO UPPER LIP. LT IJ CENTRAL DOUBLE LUMEN CENTRAL LINE INFUSING NS @ 75 ML/HR. LUNG SOUNDS CLEAR THROUGHOUT. BOWEL SOUNDS ACTIVE X4. ABD SOFT, NON-DISTENDED, AND NON-TENDER TO PALPATION. INDWELLING CATH PATENT DRAINING CLEAR, YELLOW-COLORED URINE TO GRAVITY. SKIN WARM, DRY AND INTACT. BED LOW AND LOCKED. SIDE RAILS UP X2. CALL LIGHT LEFT WITHIN REACH. WILL CONTINUE TO MONITOR FOR CHANGES.
--- NOTE | 2019-06-07 21:20 | NUR ---
C/O NAUSEA AND ABDOMINAL DISCOMFORT. ZOFRAN 2MG ADMINISTERED ORDERED WITHOUT INCIDENT. FATHER REMAINS AT BEDSIDE. SAFETY PRECAUTIONS IN PLACE. CALL LIGHT LEFT WITHIN REACH. WILL CONTINUE TO MONITOR FOR CHANGES.
[2019-06-07] MEDS: ONDANSETRON 4 MG/2 ML VIAL IVP PRN (21:23)
--- NOTE | 2019-06-07 22:20 | NUR ---
REASSESSED R/T EARLIER C/O NAUSEA. PT STATES THAT IT HAS DECREASED AND IS RESTING IN BED. VSS. SAFETY PRECAUTIONS REMAIN IN PLACE. BED LOW AND LOCKED. SIDE RAILS UP X2. CALL LIGHT WITHIN REACH. WILL CONTINUE TO MONITOR FOR CHANGES.
[2019-06-08] VITALS (7 sets, daily range): BP systolic 105–134; BP diastolic 55–79
--- NOTE | 2019-06-08 03:30 | NUR ---
C/O NAUSEA AT THIS TIME. REPOSITIONED. FLUIDS OFFERED. NON-PHARMACOLOGIC INTERVENTIONS INEFFECTIVE, MEDICATED ORDERED.
[2019-06-08] MEDS: NACL 0.9% 1,000 ML IV SCH ×2 (03:45→17:20)
[2019-06-08] MEDS: ONDANSETRON 4 MG/2 ML VIAL IVP PRN (03:47)
[2019-06-08] MEDS: ACETAMINOPHEN 325 MG TAB PO PRN (03:58)
--- NOTE | 2019-06-08 04:00 | NUR ---
C/O ABDOMINAL PAIN @ 08/12. REPOSITIONED. NON-PHARMACOLOGIC INTERVENTIONS INEFFECTIVE. PRN TYLENOL ADMINISTERED ORDERED. NO ASE NOTED @ THIS TIME.
--- NOTE | 2019-06-08 05:00 | NUR ---
REASSESSED PT D/T EARLIER C/O ABDOMINAL PAIN WITH TYLENOL ADMINISTERED. DENIES PAIN @ THIS TIME. VSS. SAFETY PRECAUTIONS REMAIN IN PLACE. BED LOW AND LOCKED. SIDE RAILS UP X2. CALL LIGHT WITHIN REACH. WILL CONTINUE TO MONITOR.
[2019-06-08] MEDS: PIPERACILLIN/TAZOBACTAM 2.25 GM in DEXTROSE 5% 50 ML IV SCH ×2 (05:13→14:58)
[2019-06-08 05:50] LABS: BASOPHILS % (AUTO) 0.1 % (0.0-2.0); HEMATOCRIT 37.6 % (36-52); HEMOGLOBIN 12.5 g/dL (12.0-18.0); LYMPHOCYTES # (AUTO) 1.2 K/uL (2.0-11.5); LYMPHOCYTES % (AUTO) 7.9 % (20.5-51.1); MEAN CORPUSCULAR HEMOGLOBIN 31 pg (27-31); MEAN CORPUSCULAR HGB CONC 33 g/dL (33-37); MEAN CORPUSCULAR VOLUME 92.1 fL (80-94); MONOCYTES # (AUTO) 0.4 K/uL (0.8-1.0); MONOCYTES % (AUTO) 2.6 % (1.7-9.3); NEUTROPHILS # (AUTO) 13.9 K/uL (1.8-7.7); NEUTROPHILS % (AUTO) 89.4 % (42.2-75.2); PLATELET COUNT (AUTO) 86 K/uL (140-450); RED BLOOD CELL COUNT(AUTO) 4.08 MIL/uL (4.20-6.10); WHITE BLOOD COUNT (AUTO) 15.6 K/uL (4.8-10.8)
[2019-06-08 06:27] LABS: ALBUMIN 2.5 g/dL (3.4-5.0); ANION GAP 11.5 (8-16); CARBON DIOXIDE 29.6 mmol/L (21-32); CREATININE 0.9 mg/dL (0.7-1.3); POTASSIUM 4.1 mmol/L (3.5-5.1); TOTAL BILIRUBIN 1.3 mg/dL (0.0-1.0)
--- NOTE | 2019-06-08 07:30 | NUR ---
RECEIVED PATIENT FROM ICU, REPORT RECEIVED BY ICU NURSE. PATIENT WAS ORIENTED TO THE UNIT, SINUS BRADYCARDIA ASYMPTOMATIC ESPECIALLY WHILE SLEEPING. IV ZOSYN RUNNING Q6HRS. PATIENT IS BEING TREATED FOR SEVERE SEPSIS. AA0 X 4. CALL LIGHT ON AND WITHIN REACH. WILL CONTINUE TO MONITOR.
[2019-06-08] MEDS: LACTOBACILLUS RHAMNOSUS GG 1 EACH CAP PO SCH (10:03)
--- NOTE | 2019-06-08 10:30 | NUR ---
PATIENT IS RESTING IN BED, SLEEPING, BPM 47. NO SIGNS OF DETERIORATION NOTED. CHARGE NURSE AWARE. REPORTS BURNING SENSATION WHILE EATING. CALL LIGHT ON AND WITHIN REACH. WILL CONTINUE TO MONITOR.
--- NOTE | 2019-06-08 12:30 | NUR ---
PATIENT IS RESTING IN BED, FAMILY AT BEDSIDE, IV ANTIBIOTICS COMPLETED. IV FLUID RUNNING. BED IN LOW POSITION, CALL LIGHT ON AND WITHIN REACH. WILL CONTINUE TO MONITOR.
--- NOTE | 2019-06-08 15:00 | NUR ---
PELLETIZER OPERATOR GATO FROM [facility] CALLED AND REQUESTED PROGRESS NOTES, LABS, MEDICATIONS, AND D/C ORDER TO BE FAXED OVER TO [phone]. GATO STATED THAT [facility] HAS ACCEPTED [facility].
--- NOTE | 2019-06-08 17:30 | NUR ---
PATIENT IS RESTING IN BED, OBSERVED CHEST RISE AND FALL. WAITING TO HEAR BACK FROM [facility] REGARDING OPEN BED.
--- NOTE | 2019-06-08 18:53 | NUR ---
GATO AIRCRAFT DETAIL DRAFTSPERSON FROM [facility] CALLED THE NURSE ASSIGNED TO PT THAT THEY HAVE ACCEPTED PT AND WILL GIVE US THE ROOM NUMBER AFTER THE NURSE HAVE GIVEN REPORT TO THE FACILITY. TRAVIS-RN ASSIGNED WILL CALL FOR REPORT.
--- NOTE | 2019-06-08 19:00 | NUR ---
NOTIFIED DR. MAXX QUINONES, GRAIN ORIGINATION SPECIALIST FOR DR. NICHOLS REGARDING THE TRANSFER TO CONTRACTED FACILITY, STATED TO KEEP THE ROBLES AND CENTRAL LINE. TRAVIS KANG MADE AWARE.
--- NOTE | 2019-06-08 19:23 | NUR ---
REPORT GIVEN TO LENS SHAPER GRINDER NURSE FOR CONTINUATION OF CARE.
--- NOTE | 2019-06-08 19:30 | NUR ---
ASSUMED CARE FROM AM SHIFT. PT. FOR DISCHARGE TO [facility]. AWAITING CALL BACK FROM [facility] FOR AMBULANCE ETA.
--- NOTE | 2019-06-08 19:35 | NUR ---
KAUR FROM [facility] CALLED BACK AND SAID [facility] ETA IS 1999.
--- NOTE | 2019-06-08 20:05 | NUR ---
[facility] HERE TO NITRATING ACID MIXER PT. REPORT GIVEN TO ORACLE DEVELOPER SIDRA. COPY OF MEDICAL RECORDS,AFTERCARE INSTRUCTIONS HANDED OVER TO ORACLE DEVELOPER/EMT. PT.ALERT,ORIENTED. AFEBRILE, NOT IN ANY KIND OF DISTRESS. DENIES ANY PAIN OR DISCOMFORT. FACT CHECKER DISCONTINUED BUT ROBLES CATHETER AND LEFT IJ CVP RETAINED. VITAL SIGNS ARE WITHIN NORMAL LIMITS.
--- NOTE | 2019-06-08 20:25 | NUR ---
LEFT UNIT VIA AMBULANCE [facility].
--- NOTE | 2019-06-08 22:36 | NUR ---
SHAUN FROM [facility] CALLED AND CONFIRMED WITH RN IF PT.HAS BEEN DISCHARGED.
== END 2019-06-08 20:25 | disposition short-term general hospital (02) | DRG 871 ==
LOC: MED 08:51 → MIC 12:24 → MTU 06-08 07:59
PROVIDERS: ADMIT Internal Medicine Pulmonary Disease; ATTEND Internal Medicine Pulmonary Disease
PROC: 009U3ZX Drainage of Spinal Canal, Percutaneous Approach, Diagnostic (ICD-10-PCS; principal; 2019-06-04)
PROC: 02HV33Z Insertion of Infusion Device into Superior Vena Cava, Percutaneous Approach (ICD-10-PCS; 2019-06-04)
PROC: B548ZZA Ultrasonography of Superior Vena Cava, Guidance (ICD-10-PCS; 2019-06-04)
DX: A41.9 Sepsis, unspecified organism (principal); R65.21 Severe sepsis with septic shock; N17.0 Acute kidney failure with tubular necrosis; K72.00 Acute and subacute hepatic failure without coma; K83.1 Obstruction of bile duct; E87.2 Acidosis; I31.9 Disease of pericardium, unspecified; M62.82 Rhabdomyolysis; E87.5 Hyperkalemia; E83.51 Hypocalcemia; K52.9 Noninfective gastroenteritis and colitis, unspecified; N30.90 Cystitis, unspecified without hematuria; I95.9 Hypotension, unspecified; D69.6 Thrombocytopenia, unspecified; R07.1 Chest pain on breathing
CPT/HCPCS: 36415; 36556; 36600; 51702; 62270; 71045; 76770; 80048; 80053; 81001; 82150; 82310; 82550; 82553; 82803; 82948; 83605; 83690; 83735; 84100; 84157; 84484; 85025; 85610; 85651; 85730; 86171; 87040; 87081; 87804; 93005; 96365; 96366; 96368; 96375; 96376; 99291; J0610; J0696; J1100; J1265; J1644; J1720; J1885; J2001; J2060; J2270; J2405; J2543; J2930; J3010; J3370; J3411; J3480; J3490; J7030; J7060; J7120; Q0092